=== PATIENT | male | born 1975 | race Caucasian/White ===

== ENCOUNTER → 2023-07-17 10:17 | Outpatient (BNVA) | payer OTHER, SELFPAY | PROVIDERS: Visit Provider Nurse Practitioner | DX: R69 Illness, unspecified (principal); J20.9 Acute bronchitis, unspecified; Z20.822 Contact with and (suspected) exposure to COVID-19 | CPT/HCPCS: 87400; 87426 ==

== ENCOUNTER → 2023-08-25 13:33 | Outpatient (BNVA) | payer OTHER, SELFPAY | PROVIDERS: Visit Provider Internal Medicine | DX: R07.9 Chest pain, unspecified (principal); R00.1 Bradycardia, unspecified | CPT/HCPCS: 93005; 99204 ==

== ENCOUNTER → 2023-10-30 12:55 | Outpatient (BNVA) | payer OTHER, SELFPAY | PROVIDERS: Visit Provider Internal Medicine | DX: R00.1 Bradycardia, unspecified (principal); I47.10 Supraventricular tachycardia, unspecified; R07.89 Other chest pain | CPT/HCPCS: 99214 ==

== ENCOUNTER 2023-11-21 12:14 | Emergency (ER) | payer OTHER, SELFPAY ==
[2023-11-21 12:14] VITALS: BP 163/94; PULSE 73; RESP 16; TEMP 36.6; O2SAT 100; BMI 28.2
--- NOTE | 2023-11-21 12:26 | XR_ITS ---
WS: [id number] XR KUB [id number] REASON FOR EXAM: constipation FINDINGS: No free air or retroperitoneal air. Moderate amount of stool retention throughout the colon without distention. Moderate stool retention within the rectum. No mass. No urinary tract calculi. IMPRESSION: Moderate stool retention throughout the colon.
--- NOTE | 2023-11-21 12:27 | ED_ITS ---
HPI - Abdominal Pain 2 General: Chief Complaint: Abdominal Pain Stated Complaint: abd pain Time Seen by Provider: 11/21/23 12:19 Source: patient Mode of arrival: ambulatory Limitations: no limitations History of Present Illness: Patient is a nice 48-year-old male who presents to ED today with a complaint of abdominal pain, constipation/hard pellet stools, and rectal pain. Patient states symptoms started 3 to 4 weeks ago. He began noticing very hard/firm pellet stools patient states one point he was seen at [facility] and told it was constipation. He states he did several [id number] enemas/suppositories and eventually did pass some stool but reportedly has yet to have a normal bowel movement over that time. He states he is now having fairly significant abdominal pains at times. Currently rating it at a 6/10 but states at its worst it is a 10/10. He is now having rectal pain worse with straining for defecation. Denies any black or tarry stools or hematochezia. No nausea or vomiting. No fevers. MD elicited complaint: abdominal pain Pertinent past history: none Onset (ago): week(s) Pain Consistency: constant Location: Diffuse Severity: severe Radiation: none Migration to: no migration Exacerbating factors: bowel movement Associated Symptoms: Reports constipation; Denies chills, diarrhea, dysuria, fever(s), hematochezia, melena, nausea and vomiting Review of Systems 2 Const: Denies: fever(s), chills, body aches, fatigue or malaise Card: Denies: chest pain Resp: Denies: dyspnea GI: Reports: abdominal pain, constipation and rectal pain; Denies: nausea, vomiting, diarrhea, hematochezia or melena : Denies: flank pain, difficulty urinating, dysuria, urinary frequency, urinary urgency or urinary hesitancy Musc: Reports: back pain; Denies: neck pain, extremity pain or joint pain Skin/Breast: Denies: rash Neuro: Denies: headache(s), numbness in extremities, weakness in extremities or sensory changes Physical Exam 2 Const: COMMON NORMALS: no acute distress, average body habitus, patient oriented x3, no limitations, healthy appearing, alert and well nourished Eye: COMMON NORMALS: no scleral icterus Resp: COMMON NORMALS: normal respiratory effort and clear to auscultation bilaterally AUSCULTATION: clear to auscultation bilaterally Cardio: COMMON NORMALS: regular rate and regular rhythm RATE: regular rate RHYTHM: regular rhythm GI: COMMON NORMALS: Normal to inspection, nondistended, normoactive bowel sounds present, Soft to palpation, No hepatosplenomegaly present and no masses INSPECTION: Yes normal to inspection AUSCULTATION: Yes Hyperactive bowel sounds present PALPATION: Yes Soft to palpation, Yes Tenderness to palpation present (GI) (diffusely), Yes Guarding due to palpation present (GI), No Rigid due to palpation and Yes No hepatosplenomegaly present RECTAL EXAM: Yes visual inspection normal, Yes normal sphincter tone, No Anal fissure(s) present, No mass and Yes other (firm stool palpated) : COMMON NORMALS: Yes no CVA tenderness BLADDER/KIDNEY EXAM: Yes no CVA tenderness Back/Pelvis: COMMON NORMALS: no CVA tenderness and thoracic and lumbar spine normal to inspection Extremity: GENERAL: Yes normal exam except as noted Neuro: COMMON NORMALS: patient oriented x3, moves all extremities, no focal motor deficits, no sensory deficits noted and gait normal S ENSORIUM/ORIENTATION: Yes alert Skin: COMMON NORMALS: no rashes or lesions noted GENERAL SKIN EXAM: no rashes or lesions noted Course 2 Vital Signs: Vital signs: Vital Signs Temperature 97.9 F 11/21/23 12:14 Pulse Rate 66 11/21/23 12:56 Respiratory Rate 16 11/21/23 12:14 Blood Pressure 163/94 11/21/23 12:14 Pulse Oximetry 96 11/21/23 12:56 Oxygen Delivery Me thod Room Air 11/21/23 12:56 MDM - Abdominal Pain Medical Decision Making Patient here with complaints of abdominal pain and constipation over the past month or so. He felt like his abdominal pain was worsening and thus prompting his ED evaluation today. He was fairly tender over his abdomen diffusely this CT imaging obtained as tenderness was concerning that this could potentially be more than simple constipation. His blood work is unremarkable. His vital signs are stable. CT scan of his abdomen showing no emergent etiology. He does have dense rectosigmoid constipation. Patient was given instructions for OTC enema to help alleviate firm stool ball present within his rectal vault. Once this has cleared, he was then given a solution of lactulose, milk of magnesia, and mineral oil that he is to drink. Once bowels begin to move I would like him to start MiraLAX/Colace for continued cleaning for the next week. Follow up with PCP. Return to ED precautios given. Differential Diagnosis Likely abdominal pain, constipation, diverticulitis, gastroenteritis and small bowel obstruction Medical Records I reviewed the patient's medical records. Lab Data I reviewed the patient's lab results. 11/21/23 12:44 11/21/23 12:44 Labs/Radiology: Laboratory Results WBC 6.96 10^3/uL (3.29-11.43) 11/21/23 12:44 RBC 5.31 10^6/uL (3.85-5.65) 11/21/23 12:44 Hgb 15.70 g/dL (11.27-16.99) 11/21/23 12:44 Hct 45.1 % (37-53) 11/21/23 12:44 MCV 84.9 fl (82-101) 11/21/23 12:44 MCH 29.6 pg (27-33) 11/21/23 12:44 MCHC 34.8 g/dL (30-55) 11/21/23 12:44 RDW 12.3 % (12.1-15.1) 11/21/23 12:44 Plt Count 289 10^3/cmm (157-399) 11/21/23 12:44 MPV 9.6 fL (7.4-10.4) 11/21/23 12:44 Neut % (Auto) 55.9 % 11/21/23 12:44 Lymph % (Auto) 33.5 % 11/21/23 12:44 Garland % (Auto) 7.2 % 11/21/23 12:44 Eos % (Auto) 2.2 % 11/21/23 12:44 Baso % (Auto) 0.9 % 11/21/23 12:44 Neut # (Auto) 3.90 10^3/uL (1.8-7.7) 11/21/23 12:44 Lymph # (Auto) 2.3 10^3/uL (0.8-4.8) 11/21/23 12:44 Garland # (Auto) 0.5 10^3/uL (0.2-0.9) 11/21/23 12:44 Eos # (Auto) 0.2 10^3/uL (0.0-0.8) 11/21/23 12:44 Baso # (Auto) 0.1 10^3/uL (0.0-0.1) 11/21/23 12:44 Nucleated RBC % (auto) 0 % 11/21/23 12:44 Nucleated RBCs # 0.0 /100WBC 11/21/23 12:44 Sodium 141 mmol/L (136-145) 11/21/23 12:44 Potassium 4.1 mmol/L (3.5-5.1) 11/21/23 12:44 Chloride 103 mmol/L (98-107) 11/21/23 12:44 Carbon Dioxide 27 mmol/L (22-29) 11/21/23 12:44 Anion Gap 15.1 (5-19) 11/21/23 12:44 BUN 13 mg/dL (6-20) 11/21/23 12:44 Creatinine 1.1 mg/dL (0.7-1.2) 11/21/23 12:44 GFR Calculation 71.4 mL/min (90-130) L 11/21/23 12:44 Glucose 108 mg/dL (65-115) 11/21/23 12:44 Calculated Osmolality 293 mOsm/kg (285-295) 11/21/23 12:44 Calcium 9.1 mg/dL (8.5-10.5) 11/21/23 12:44 Total Bilirubin 0.4 mg/dL (0.15-1.2) 11/21/23 12:44 AST 23 U/L (0-40) 11/21/23 12:44 ALT 28 U/L (0-41) 11/21/23 12:44 Alkaline Phosphatase 83 U/L (40-130) 11/21/23 12:44 Total Protein 6.8 g/dL (6.6-8.7) 11/21/23 12:44 Albumin 3.9 g/dL (3.5-5.2) 11/21/23 12:44 Globulin 2.9 g/dL (1.3-4.6) 11/21/23 12:44 Lipase 36 U/L (13-60) 11/21/23 12:44 Urine Color Yellow (Yellow) 11/21/23 13:51 Urine Appearance Clear (CLEAR) 11/21/23 13:51 Urine pH 8 (5-7) H 11/21/23 13:51 Ur Specific Harrington 1.005 (1.005-1.030) 11/21/23 13:51 Urine Protein Neg (Negative) 11/21/23 13:51 Urine Glucose (UA) Norm (Normal) 11/21/23 13:51 Urine Ketones Negative (Negative) 11/21/23 13:51 Urine Blood Neg (Negative) 11/21/23 13:51 Urine Nitrate Negative (Negative) 11/21/23 13:51 Urine Bilirubin Neg (Negative) 11/21/23 13:51 Prot Sulfosalicylic Acd Negative (Negative) 11/21/23 13:51 Urine Urobilinogen Norm mg/dL (Negative) 11/21/23 13:51 Ur Leukocyte Esterase Negative (Negative) 11/21/23 13:51 All radiology interpretation(s) finalized by discharge Discharge Plan Discharge Patient Disposition: Home Clinical Impression: Constipation Qualifiers: Constipation type: unspecified constipation type Qualified Code(s): K59.00 - Constipation, unspecified Condition: Stable Prescriptions: No Action albuterol sulfate 90 mcg/actuation HFA aerosol inhaler 2 puff inhalation Q6H PRN (Reason: shortness of breath or wheezing) Qty: 8.5 0RF buspirone 10 mg tablet 10 mg PO QAM metoprolol tartrate 25 mg tablet 25 mg PO BID PRN (Reason: Palpitations) Qty: 90 1RF Pepcid 20 mg Tablet 20 mg PO DAILY Advil 200 mg Tablet See Rx Instructions .ROUTE .COMPLEX Rx Instructions: 400mg po in the am and 200mg po at bedtime Discharge Orders: Discharge ED (Routine); Ordered 11/21/23 Ordered By: Alisha Cuello Referrals: Luanne Hlolis FNP [Primary Care Provider] - Patient Instructions: Constipation - Adult, Constipation (DC) Activity Restrictions/Additional Instructions: As we discussed I would like you to try an [id number] enema when you get home to try to alleviate any form/hard stool ball. The solution that was given to you today you may drink following this. Once stool begins moving I would like you to start doing a capful of MiraLAX (mixed in a full glass of water) twice daily over the next week to continue moving your bowels. You may also take 2 tabs of Colace twice daily in addition to the above therapies. Coding Level of Care Code ED Senior Net C Developer for Brittany Rosario
[2023-11-21 12:49] LABS: Basophils # 0.1 10^3/uL (0.0-0.1); Basophils % 0.9 %; Eosinophils # 0.2 10^3/uL (0.0-0.8); Eosinophils % 2.2 %; Hematocrit 45.1 % (37-53); Lymphocytes # 2.3 10^3/uL (0.8-4.8); Lymphocytes % 33.5 %; Mean Corpuscular HGB Conc 34.8 g/dL (30-55); Mean Corpuscular Hemoglobin 29.6 pg (27-33); Mean Corpuscular Volume 84.9 fl (82-101); Mean Platelet Volume 9.6 fL (7.4-10.4); Monocytes # 0.5 10^3/uL (0.2-0.9); Monocytes % 7.2 %; Neutrophils % 55.9 %; Nucleated Red Blood Cells % 0 %; Platelet Count 289 10^3/cmm (157-399); Red Blood Count 5.31 10^6/uL (3.85-5.65); Red Cell Distribution Width 12.3 % (12.1-15.1); White Blood Count 6.96 10^3/uL (3.29-11.43)
--- NOTE | 2023-11-21 12:49 | CT_ITS ---
WS: [id number] CT ABDOMEN PELVIS TECHNIQUE: Contrast-enhanced CT of the abdomen and pelvis with coronal and sagittal reformatted image s. CLINICAL INFORMATION: abdominal pain, constipation, rectal pain COMPARISON: None. DLP: 551.[address] scans at [facility] use at least one of these dose optimization techniques: automated e xposure control; mA and/or kV adjustment per patient size (includes targeted exams where dose is matc hed to clinical indication); or iterative reconstruction. FINDINGS: Lung bases are well aerated. Diffuse fatty infiltration of the liver. Normal portal vein and splenic vein. Food products in the stomach. Adrenal glands are normal. Normal renal parenchyma enhancement. N o hydronephrosis. Small bilateral renal cysts. Celiac and SMA are patent. Normal caliber abdominal ao rta. Rectosigmoid constipation. No bowel obstruction. Normal appendix in the RIGHT lower quadrant. Slight retrolisthesis L4 on L5. Tiny fat-containing umbilical hernia. No free fluid in the abdomen or pelvis . 122 IMPRESSION: 1. Dense rectosigmoid constipation. 2. No free fluid in the abdomen or pelvis. 3. Mild diffuse fatty infiltration of the liver. 4. Distended stomach with food products. 5. No other acute findings.
[2023-11-21 12:56] VITALS: PULSE 66; O2SAT 96
[2023-11-21 13:05] LABS: Alanine Aminotransferase 28 U/L (0-41); Albumin Level 3.9 g/dL (3.5-5.2); Alkaline Phosphatase 83 U/L (40-130); Anion Gap 15.1 (5-19); Aspartate Amino Transferase 23 U/L (0-40); Blood Urea Nitrogen 13 mg/dL (6-20); Calcium 9.1 mg/dL (8.5-10.5); Carbon Dioxide 27 mmol/L (22-29); Chloride 103 mmol/L (98-107); Globulin 2.9 g/dL (1.3-4.6); Glomerular Filtration Rate 71.4 mL/min (90-130); Glucose 108 mg/dL (65-115); Lipase 36 U/L (13-60); Osmolality Calculated 293 mOsm/kg (285-295); Potassium 4.1 mmol/L (3.5-5.1); Sodium 141 mmol/L (136-145); Total Bilirubin 0.4 mg/dL (0.15-1.2); Total Protein 6.8 g/dL (6.6-8.7)
[2023-11-21] MEDS: iohexol 350 mg/mL 500 mL Btl (per mL) IV (13:17)
--- NOTE | 2023-11-21 13:46 | PC.PHAR ---
pt states he takes care of his own medications-pt states tabatha buspar 10mg qam rx filled for 10mg qid-
[2023-11-21 13:58] LABS: Add Urine Microscopic? NO; Charge for UA Resulting for Rev
[2023-11-21 14:07] LABS: Bilirubin Urine Neg (Negative); Blood Urine Neg (Negative); Glucose Urine UA Norm (Normal); Ketones Urine Negative (Negative); Leukocyte Esterase Urine Negative (Negative); Nitrate Urine Negative (Negative); Protein Urine Neg (Negative); Specific Gravity, Urine 1.005 (1.005-1.030); Sulfosalicylic Acid Urine Negative (Negative); Urine Appearance Clear (CLEAR); Urine Color Yellow (Yellow); Urobilinogen Urine Norm (Negative); pH Urine 8 (5-7)
--- NOTE | 2023-11-21 14:07 | PC.NURSE ---
discharge delayed d/t waiting on urinalysis results.
[2023-11-21 14:30] VITALS: BP 142/92; PULSE 76; O2SAT 96
--- NOTE | 2023-11-21 14:30 | PC.NURSE ---
lactulose, magnesium hydroxide, and mineral oil sent home with patient.
== END 2023-11-21 14:31 | disposition home or self-care (01) ==
PROVIDERS: Emergency Provider Physician Assistant; PCP Nurse Practitioner
DX: K59.00 Constipation, unspecified (principal)
CPT/HCPCS: 36415; 74018; 74177; 80053; 81003; 83690; 85025; 99285; Q9967

== ENCOUNTER → 2023-12-10 14:51 | Outpatient (BNVA) | payer SELFPAY | PROVIDERS: PCP Nurse Practitioner Family; Visit Provider Nurse Practitioner Family | DX: J11.1 Influenza due to unidentified influenza virus with other respiratory manifestations (principal); R50.9 Fever, unspecified | CPT/HCPCS: 87400 ==

== ENCOUNTER 2024-12-20 15:18 | Emergency (ER) | payer OTHER, SELFPAY ==
[2024-12-20 15:30] VITALS: BP 139/86; PULSE 73; RESP 16; TEMP 36.8; O2SAT 98
--- NOTE | 2024-12-20 19:12 | ED_ITS ---
HPI - Abdominal Pain 2 General: Chief Complaint: Abdominal Pain Stated Complaint: Black stools sent from ut Time Seen by Provider: 12/20/24 17:58 History of Present Illness: Is a 49-year-old man with a history of constipation who presents emergency room with constipation. He has had some mild nausea. No vomiting. He has been having pain mostly in his left lower quadrant for about 3 weeks now. He has been having hard dry stools. No fevers. No chest pain. No altered mental status. Related Data Home Medications ?Medication ?Instructions ?Recorded ?Confirmed buspirone 10 mg tablet 10 mg PO QAM 08/25/23 famotidine 20 mg tablet (Pepcid) 20 mg PO DAILY 12/10/23 ibuprofen 200 mg tablet (Advil) See Rx Instructions .R oute .COMPLEX 11/21/23 12/10/23 Previous Rx's ?Medication ?Instructions ?Recorded albuterol sulfate 90 mcg/actuation 2 puff inhalation Q 6H PRN 07/17/23 aerosol inhaler shortness of breath or wheez ing #8.5 grams metoprolol tartrate 25 mg tablet 25 mg PO BID PRN Palp itations #90 10/30/23 tabs oseltamivir 75 mg capsule (Tamiflu) 75 mg PO BID 5 day s #10 caps 12/10/23 promethazine-DM 6.25 mg-15 mg/5 mL 5 ml PO Q6H PRN cou gh #118 mL 12/10/23 oral syrup glycerin (adult) 1 supp HI DAILY PRN constipa tion 12/20/24 #12 ea magnesium citrate 296 ml PO ONCE #296 mL 12/20 polyethylene glycol 3350 17 17 g PO DAILY #510 grams 0 12/20/24 gram/dose oral powder (Miralax) Allergies Allergy/AdvReac Type Severity Reaction Status Date / Time No Known Allergies Allergy Verified 12/20/24 15:33 Review of Systems 2 Narrative: Constitutional symptoms: Negative except as documented in HPI. Skin symptoms: Negative except as documented in HPI. Eye symptoms: Negative except as documented in HPI. ENMT symptoms: Negative except as documented in HPI. Respiratory symptoms: Negative except as documented in HPI. Cardiovascular symptoms: Negative except as documented in HPI. Gastrointestinal symptoms: Negative except as documented in HPI. Genitourinary symptoms: Negative except as documented in HPI. Musculoskeletal symptoms: Negative except as documented in HPI. Neurologic symptoms: Negative except as documented in HPI. Psychiatric symptoms: Negative except as documented in HPI. Endocrine symptoms: Negative except as documented in HPI. Physical Exam 2 Narrative: EXAM NARRATIVE: General: Alert, no acute distress. Skin: Warm, dry. Head: Normocephalic, atraumatic. Neck: Supple, trachea midline. Eye: Extraocular movements are intact. Ears, nose, mouth and throat: mucosa moist. Cardiovascular: Regular, Normal peripheral perfusion. Respiratory: Lungs are clear to auscultation, respirations are non-labored, breath sounds are equal, Symmetrical chest wall expansion. Gastrointestinal: Soft, mild tenderness in the left lower, Non distended Musculoskeletal: Normal ROM, no deformity. Neurological: Alert and oriented, No focal neurological deficit observed. Psychiatric: Cooperative, appropriate mood & affect. Course 2 Vital Signs: Vital signs: Vital Signs Temperature 98.2 F 12/20/24 15:30 Pulse Rate 65 12/20/24 19:20 Respiratory Rate 16 12/20/24 19:20 Blood Pressure 116/92 12/20/24 19:20 Pulse Oximetry 98 12/20/24 19:20 Oxygen Delivery Me thod Room Air 12/20/24 19:20 MDM - Abdominal Pain Medical Decision Making Medical decision making: Differential diagnosis including but not limited to and based on the above HPI, review of systems and physical exam: - patient with complaint of constipation: Small bowel obstruction. Gastroparesis. Constipation. Also evaluation for urinary retention, liver disease, renal failure. Orders placed to evaluate differential diagnosis based on the above differential, HPI and physical exam X-ray of the abdomen: Diffuse stool. Fecal stool. Constipation. This was reviewed and interpreted by myself the emergency room physician. I also reviewed the radiology report. Lab Review: Laboratory results were reviewed and interpreted by myself the emergency room physician. Lab work is unremarkable. No leukocytosis. No anemia. No renal failure. CRP is negative. Likely no inflammatory bowel processes. I reviewed the patient's medical record. Reexamination: Patient remained stable. No increased work of breathing. No altered mental status. No focal motor deficits. Assessment and plan: Constipation - Discharged home - Discussed findings and plan with patient. Answered any questions. - All laboratory values were reviewed and interpreted personally by myself, the ER physician - All imaging was reviewed and interpreted personally by myself, the ER physician. - Evaluation and treatment of this problem were appropriate in the emergency setting Lab Data 12/20/24 19:15 12/20/24 19:15 Labs/Radiology: Radiology Impressions Abdomen X-Ray 12/20/24 19:13 IMPRESSION: As above. Laboratory Results WBC 9.15 10^3/uL (3.29-11.43) 12/20/24 19:15 RBC 5.78 10^6/uL (3.85-5.65) H 12/20/24 19:15 Hgb 16.80 g/dL (11.27-16.99) 12/20/24 19:15 Hct 49.1 % (37-53) 12/20/24 19:15 MCV 84.9 fl (82-101) 12/20/24 19:15 MCH 29.1 pg (27-33) 12/20/24 19:15 MCHC 34.2 g/dL (30-55) 12/20/24 19:15 RDW 12.5 % (12.1-15.1) 12/20/24 19:15 Plt Count 265 10^3/cmm (157-399) 12/20/24 19:15 MPV 9.7 fL (7.4-10.4) 12/20/24 19:15 Neut % (Auto) 61.6 % 12/20/24 19:15 Lymph % (Auto) 28.3 % 12/20/24 19:15 Foster % (Auto) 7.1 % 12/20/24 19:15 Eos % (Auto) 2.1 % 12/20/24 19:15 Baso % (Auto) 0.7 % 12/20/24 19:15 Neut # (Auto) 5.64 10^3/uL (1.8-7.7) 12/20/24 19:15 Lymph # (Auto) 2.6 10^3/uL (0.8-4.8) 12/20/24 19:15 Foster # (Auto) 0.7 10^3/uL (0.2-0.9) 12/20/24 19:15 Eos # (Auto) 0.2 10^3/uL (0.0-0.8) 12/20/24 19:15 Baso # (Auto) 0.1 10^3/uL (0.0-0.1) 12/20/24 19:15 Nucleated RBC % (auto) 0 % 12/20/24 19:15 Nucleated RBCs # 0.0 /100WBC 12/20/24 19:15 PT 12.30 SECONDS (12.1-14.9) 12/20/24 19:15 INR 0.86 (0.8-1.2) 12/20/24 19:15 Sodium 138 mmol/L (136-145) 12/20/24 19:15 Potassium 3.9 mmol/L (3.5-5.1) 12/20/24 19:15 Chloride 102 mmol/L (98-107) 12/20/24 19:15 Carbon Dioxide 26 mmol/L (22-29) 12/20/24 19:15 Anion Gap 13.9 (5-19) 12/20/24 19:15 BUN 13 mg/dL (6-20) 12/20/24 19:15 Creatinine 1.0 mg/dL (0.7-1.2) 12/20/24 19:15 GFR Calculation 79.4 mL/min (90-130) L 12/20/24 19:15 Glucose 96 mg/dL (65-115) 12/20/24 19:15 Calculated Osmolality 286 mOsm/kg (285-295) 12/20/24 19:15 Calcium 9.0 mg/dL (8.5-10.5) 12/20/24 19:15 Total Bilirubin 0.3 mg/dL (0.15-1.2) 12/20/24 19:15 AST 21 U/L (0-40) 12/20/24 19:15 ALT 27 U/L (0-41) 12/20/24 19:15 Alkaline Phosphatase 114 U/L (40-130) 12/20/24 19:15 C-Reactive Protein 3.0 mg/L (0.0-4.9) 12/20/24 19:15 Total Protein 7.5 g/dL (6.6-8.7) 12/20/24 19:15 Albumin 4.4 g/dL (3.5-5.2) 12/20/24 19:15 Globulin 3.1 g/dL (1.3-4.6) 12/20/24 19:15 Lipase 42 U/L (13-60) 12/20/24 19:15 All radiology interpretation(s) finalized by discharge Discharge Plan Discharge Patient Disposition: Home Clinical Impression: Constipation Condition: Stable Prescriptions: New magnesium citrate Solution 296 ml PO ONCE Qty: 296 0RF polyethylene glycol 3350 [Miralax] 17 gram/dose powder 17 g PO DAILY Qty: 510 0RF Rx Instructions: Take 1-2 scoops daily for the next 3 months to keep stools soft glycerin (adult) Suppository 1 supp HI DAILY PRN (Reason: constipation) Qty: 12 0RF No Action albuterol sulfate 90 mcg/actuation HFA aerosol inhaler 2 puff inhalation Q6H PRN (Reason: shortness of breath or wheezing) Qty: 8.5 0RF buspirone 10 mg tablet 10 mg PO QAM metoprolol tartrate 25 mg tablet 25 mg PO BID PRN (Reason: Palpitations) Qty: 90 1RF promethazine-DM 6.25-15 mg/5 mL syrup 5 ml PO Q6H PRN (Reason: cough) Qty: 118 0RF oseltamivir [Tamiflu] 75 mg capsule 75 mg PO BID 5 Days Qty: 10 0RF Pepcid 20 mg Tablet 20 mg PO DAILY Advil 200 mg Tablet See Rx Instructions .ROUTE .COMPLEX Rx Instructions: 400mg po in the am and 200mg po at bedtime Discharge Orders: Discharge ED (Routine); Ordered 12/20/24 Ordered By: Yadira Craven Referrals: Luanne Hollis, EDUCATIONAL DIRECTOR [Primary Care Provider] - Discharge Diet: Usual diet Discharge Activity: Increase activity as tolerated Patient Instructions: Constipation (ED), Opioid Safety, Pain Management Activity Restrictions/Additional Instructions: Thank you for choosing [facility] for your healthcare needs today. Please realize this is an emergency room and that we are providing you with a medical screening exam and this may not be complete and all inclusive of all the testing and or work up that you may need to determine your ailment or severity of your illness. You have been screened and evaluated and felt safe for discharge. Health conditions do change or evolve sometimes and as such it is important that you follow up with your Primary Doctor to be re checked, 3-5 days is a general good time frame for follow up. You are always welcome to return to the ED for re assessment if your symptoms are worsening or you have new concerns Print Language: Faroese Coding Level of Care Code ED T[employer] Reg[employer]oving Machine Operator for Brittany Rosario
--- NOTE | 2024-12-20 19:13 | XRR_ITS ---
PROCEDURE INFORMATION: Exam: XR Abdomen Exam date and time: 12/20/2024 7:16 PM Age: 49 years old Clinical indication: Abdominal pain; Acute; Additional info: Abd pain TECHNIQUE: Imaging protocol: Radiologic exam of the abdomen. Views: Frontal supine view of the abdomen. 1 View. COMPARISON: CT abdomen pelvis w con* [id number] 11/21/2023 1:13 PM FINDINGS: Gastrointestinal tract: Large amount of retained stool in the colon from constipation. The stomach is distended with debris. There is a moderately sized rectal stool ball. Bones/joints: Unremarkable. XR/XR abdomen 1V* [id number] IMPRESSION: As above.
[2024-12-20 19:20] VITALS: BP 116/92; PULSE 65; RESP 16; O2SAT 98
[2024-12-20 19:30] LABS: Basophils # 0.1 10^3/uL (0.0-0.1); Basophils % 0.7 %; Eosinophils # 0.2 10^3/uL (0.0-0.8); Eosinophils % 2.1 %; Hematocrit 49.1 % (37-53); Lymphocytes # 2.6 10^3/uL (0.8-4.8); Lymphocytes % 28.3 %; Mean Corpuscular HGB Conc 34.2 g/dL (30-55); Mean Corpuscular Hemoglobin 29.1 pg (27-33); Mean Corpuscular Volume 84.9 fl (82-101); Mean Platelet Volume 9.7 fL (7.4-10.4); Monocytes # 0.7 10^3/uL (0.2-0.9); Monocytes % 7.1 %; Neutrophils # 5.64 10^3/uL (1.8-7.7); Neutrophils % 61.6 %; Nucleated Red Blood Cells % 0 %; Platelet Count 265 10^3/cmm (157-399); Red Blood Count 5.78 10^6/uL (3.85-5.65); Red Cell Distribution Width 12.5 % (12.1-15.1); White Blood Count 9.15 10^3/uL (3.29-11.43)
[2024-12-20 19:44] LABS: INR 0.86 (0.8-1.2)
[2024-12-20 19:45] LABS: Alanine Aminotransferase 27 U/L (0-41); Albumin Level 4.4 g/dL (3.5-5.2); Alkaline Phosphatase 114 U/L (40-130); Anion Gap 13.9 (5-19); Aspartate Amino Transferase 21 U/L (0-40); Blood Urea Nitrogen 13 mg/dL (6-20); Carbon Dioxide 26 mmol/L (22-29); Chloride 102 mmol/L (98-107); Creatinine Clr Calc Pharmacy 90.8054; Globulin 3.1 g/dL (1.3-4.6); Glomerular Filtration Rate 79.4 mL/min (90-130); Glucose 96 mg/dL (65-115); Lipase 42 U/L (13-60); Osmolality Calculated 286 mOsm/kg (285-295); Potassium 3.9 mmol/L (3.5-5.1); Sodium 138 mmol/L (136-145); Total Bilirubin 0.3 mg/dL (0.15-1.2); Total Protein 7.5 g/dL (6.6-8.7)
--- NOTE | 2024-12-20 20:28 | PC.NURSE ---
Pt sent home with 1 Bottle of Magnesium Citrate per Dr Craven's order.
[2024-12-20 20:35] VITALS: BP 118/89; PULSE 71; RESP 16; O2SAT 97
== END 2024-12-20 20:34 | disposition home or self-care (01) ==
PROVIDERS: Emergency Medicine; Emergency Provider Emergency Medicine; PCP Nurse Practitioner
DX: K59.00 Constipation, unspecified (principal)
CPT/HCPCS: 36415; 74018; 80053; 83690; 85025; 85610; 86140; 99284